=== PATIENT | female | born 1950 | race Native Hawaiian/Other Pacific Islander ===

== ENCOUNTER 2018-04-06 10:54 | Outpatient (CLI) | payer OTHER | END 2018-04-06 10:55 | disposition home or self-care (01) | LOC: C.DEXAIC 10:54 | DX: M81.0 Age-related osteoporosis without current pathological fracture (principal) ==

== ENCOUNTER 2018-08-04 07:27 | Outpatient (CLI) | payer OTHER | END 2018-08-04 07:28 | disposition home or self-care (01) | LOC: C.LAB 07:27 | DX: R94.5 Abnormal results of liver function studies (principal) ==